=== PATIENT | male | born 1935 | race Caucasian/White ===

== ENCOUNTER 2023-03-21 05:29 | Emergency (ER) | payer OTHER, MEDICARE ==
[2023-03-21 07:17] LABS: BASOPHILS ABSOLUTE AUTO 0.05 K/uL (0.00-0.20); BASOPHILS PERCENT AUTO 0.5 % (0.0-2.0); EOSINOPHILS ABSOLUTE AUTO 0.27 K/uL (0.00-0.50); EOSINOPHILS PERCENT AUTO 2.6 % (0.0-5.0); HEMATOCRIT 43.8 % (39.0-49.0); HEMOGLOBIN 14.9 g/dL (13.1-16.8); LYMPHOCYTES ABSOLUTE AUTO 1.42 K/uL (0.50-3.50); LYMPHOCYTES PERCENT AUTO 13.5 % (10.0-50.0); MEAN CORPUSCULAR HEMOGLOBIN 31.4 pg (28.2-33.3); MEAN CORPUSCULAR VOLUME 92.2 fL (84.0-98.0); MONOCYTES ABSOLUTE AUTO 0.86 K/uL (0.00-1.00); MONOCYTES PERCENT AUTO 8.2 % (2.0-14.0); NEUTROPHILS ABSOLUTE AUTO 7.91 K/uL (1.40-7.00); NEUTROPHILS PERCENT AUTO 75.2 % (45.0-80.0); PLATELET COUNT,PLT 185 K/uL (150-350); RED BLOOD CELL COUNT 4.75 M/uL (4.33-5.41); RED CELL DISTRIBUTION WIDTH 13.4 % (11.2-14.1); WHITE BLOOD CELL COUNT,WBC 10.5 K/uL (4.0-10.2)
[2023-03-21 07:23] LABS: APPEARANCE,URINE CLEAR; BILIRUBIN,URINE NEGATIVE (NEGATIVE); COLOR,URINE YELLOW; GLUCOSE,URINE NEGATIVE (NEGATIVE); KETONES,URINE NEGATIVE (NEGATIVE); LEUKOCYTE ESTERASE,URINE NEGATIVE (NEGATIVE); NITRITE,URINE NEGATIVE (NEGATIVE); OCCULT BLOOD,URINE NEGATIVE (NEGATIVE); PROTEIN,URINE NEGATIVE (NEGATIVE); UROBILINOGEN,URINE 0.2 E.U./dL (0.2-1.0)
[2023-03-21 07:41] LABS: ALANINE AMINOTRANSFERASE,ALT 41 U/L (12-78); ALBUMIN 3.3 g/dL (3.4-5.0); ALKALINE PHOSPHATASE 103 IU/L (46-116); ASPARTATE AMNIOTRANSFERASE,AST 102 U/L (15-37); BILIRUBIN TOTAL 0.8 mg/dL (0.2-1.0); BLOOD UREA NITROGEN,BUN 28 mg/dL (7-18); CALCIUM 8.8 mg/dL (8.5-10.1); CARBON DIOXIDE,CO2 26.6 mmol/L (21.0-32.0); CHLORIDE,CL 102 mmol/L (98-107); CREATININE 1.05 mg/dL (0.51-1.17); GLUCOSE RANDOM 93 mg/dL (70-99); MAGNESIUM 1.6 mg/dL (1.8-2.4); PRO B-TYPE NATRIUR PEPT,BNPPRO 57 pg/mL (0-125); PROTEIN TOTAL,TP 7.3 g/dL (6.4-8.2); SODIUM,NA 137 mmol/L (136-145)
[2023-03-21 07:47] LABS: ANION GAP 14.9 meq/L (7-15); ESTIMATED GFR 69 mL/min (>=60)
[2023-03-21 10:09] VITALS: BP 127/76; PULSE 71
== END 2023-03-21 08:34 | disposition home or self-care (01) ==
LOC: LL.ED 05:29 → SUPCPDRO 05:29 → LL.ED 08:34
DX: M79.601 Pain in right arm (principal); M79.602 Pain in left arm; I16.0 Hypertensive urgency; I10 Essential (primary) hypertension; E83.42 Hypomagnesemia; M10.9 Gout, unspecified; E11.9 Type 2 diabetes mellitus without complications; E03.9 Hypothyroidism, unspecified; E78.00 Pure hypercholesterolemia, unspecified; E66.9 Obesity, unspecified; Z68.30 Body mass index [BMI] 30.0-30.9, adult; Z79.84 Long term (current) use of oral hypoglycemic drugs; Z79.899 Other long term (current) drug therapy
CPT/HCPCS: 36415; 80053; 81003; 83735; 83880; 85025; 99283; 99284

== ENCOUNTER 2023-07-01 14:30 | Emergency (ER) | payer MEDICARE ==
[2023-07-01] MEDS ORDERED: Lidocaine 2% with EPINEPHrine 1:100,000 20 ML MDV INJECT ONE (14:36)
[2023-07-01 15:07] VITALS: BP 164/86; PULSE 74
== END 2023-07-01 15:05 | disposition home or self-care (01) ==
LOC: LL.ED 14:30
DX: S61.412A Laceration without foreign body of left hand, initial encounter (principal); S51.011A Laceration without foreign body of right elbow, initial encounter; S51.811A Laceration without foreign body of right forearm, initial encounter; S80.211A Abrasion, right knee, initial encounter; E78.00 Pure hypercholesterolemia, unspecified; I12.9 Hypertensive chronic kidney disease with stage 1 through stage 4 chronic kidney disease, or unspecified chronic kidney disease; N18.30 Chronic kidney disease, stage 3 unspecified; E03.9 Hypothyroidism, unspecified; E11.9 Type 2 diabetes mellitus without complications; Z79.899 Other long term (current) drug therapy; Z79.82 Long term (current) use of aspirin; Z79.84 Long term (current) use of oral hypoglycemic drugs; W01.0XXA Fall on same level from slipping, tripping and stumbling without subsequent striking against object, initial encounter
CPT/HCPCS: 99282; 99283

== ENCOUNTER 2025-02-20 02:23 | Emergency (ER) | payer MEDICARE ==
[2025-02-20 02:54] LABS: BASOPHILS ABSOLUTE AUTO 0.05 K/uL (0.00-0.20); BASOPHILS PERCENT AUTO 0.6 % (0.0-2.0); EOSINOPHILS ABSOLUTE AUTO 0.34 K/uL (0.00-0.50); EOSINOPHILS PERCENT AUTO 4.3 % (0.0-5.0); HEMATOCRIT 39.3 % (39.0-49.0); HEMOGLOBIN 13.2 g/dL (13.1-16.8); IMMATURE GRAN ABSOLUTE AUTO 0.04 10^3/uL (0.00-0.04); IMMATURE GRAN PERCENT AUTO 0.5 % (0.0-0.4); LYMPHOCYTES ABSOLUTE AUTO 1.68 K/uL (0.50-3.50); LYMPHOCYTES PERCENT AUTO 21.4 % (10.0-50.0); MEAN CORPUSCULAR HEMOGLOBIN 31.7 pg (28.2-33.3); MEAN CORPUSCULAR HGB CONC 33.6 g/dL (31.7-36.0); MEAN CORPUSCULAR VOLUME 94.2 fL (84.0-98.0); MONOCYTES ABSOLUTE AUTO 0.73 K/uL (0.00-1.00); MONOCYTES PERCENT AUTO 9.3 % (2.0-14.0); NEUTROPHILS ABSOLUTE AUTO 5.02 K/uL (1.40-7.00); NEUTROPHILS PERCENT AUTO 63.9 % (45.0-80.0); PLATELET COUNT,PLT 182 K/uL (150-350); RED BLOOD CELL COUNT 4.17 M/uL (4.33-5.41); RED CELL DISTRIBUTION WIDTH 12.7 % (11.2-14.1); WHITE BLOOD CELL COUNT,WBC 7.9 K/uL (4.0-10.2)
[2025-02-20 03:12] LABS: ALANINE AMINOTRANSFERASE,ALT 39 U/L (12-78); ALBUMIN 3.2 g/dL (3.4-5.0); ALKALINE PHOSPHATASE 120 IU/L (46-116); ANION GAP 8.7 meq/L (7-15); ASPARTATE AMNIOTRANSFERASE,AST 15 U/L (15-37); BILIRUBIN TOTAL 0.5 mg/dL (0.2-1.0); BLOOD UREA NITROGEN,BUN 29 mg/dL (7-18); CALCIUM 8.6 mg/dL (8.5-10.1); CARBON DIOXIDE,CO2 27.3 mmol/L (21.0-32.0); CHLORIDE,CL 104 mmol/L (98-107); CREATININE 1.35 mg/dL (0.51-1.17); GLUCOSE RANDOM 178 mg/dL (70-99); POTASSIUM,K 4.2 mmol/L (3.5-5.1); PROTEIN TOTAL,TP 6.5 g/dL (6.4-8.2); SODIUM,NA 140 mmol/L (136-145)
[2025-02-20 03:14] LABS: ESTIMATED GFR 51 mL/min (>=60)
[2025-02-20] MEDS: Cephalexin 500 MG Cap PO ONE (03:33)
[2025-02-20 03:40] VITALS: BP 135/66; PULSE 73
== END 2025-02-20 03:36 | disposition home or self-care (01) ==
LOC: LL.ED 02:23
DX: M79.89 Other specified soft tissue disorders (principal); I12.9 Hypertensive chronic kidney disease with stage 1 through stage 4 chronic kidney disease, or unspecified chronic kidney disease; N18.9 Chronic kidney disease, unspecified; E78.00 Pure hypercholesterolemia, unspecified; E11.22 Type 2 diabetes mellitus with diabetic chronic kidney disease; E03.9 Hypothyroidism, unspecified; Z79.82 Long term (current) use of aspirin; Z79.899 Other long term (current) drug therapy; Z79.4 Long term (current) use of insulin; Z79.890 Hormone replacement therapy; Z79.84 Long term (current) use of oral hypoglycemic drugs
CPT/HCPCS: 36415; 80053; 85025; 85379; 87070; 87205; 99283; 99284; A9270-GY